=== PATIENT | female | born 1950 | race Caucasian/White ===

== ENCOUNTER → 2019-12-02 | Outpatient (CLI) | payer BC, OTHER ==
[~2019-12-02] MED LIST: ADULT LOW DOSE81 MG PO; ALTOPREV20 MG PO; ANTACID500 MG PO; CALCIUM OYSTER500 MG PO; FISH OIL 1,0001 EAC5 PO; LOPRESSOR PO; MULTIPLE VITAM1 EAC3 PO
== END ==
LOC: SJCVCIMAG 10:50
DX: I08.1 Rheumatic disorders of both mitral and tricuspid valves (principal); I10 Essential (primary) hypertension; E78.5 Hyperlipidemia, unspecified

== ENCOUNTER → 2020-01-28 | Outpatient (CLI) | payer OTHER | LOC: CAT 07:04 | PROVIDERS: ATTEND Internal Medicine Cardiovascular Disease | DX: Z13.6 Encounter for screening for cardiovascular disorders (principal); I25.10 Atherosclerotic heart disease of native coronary artery without angina pectoris; E78.00 Pure hypercholesterolemia, unspecified ==

== ENCOUNTER → 2021-06-26 | Outpatient (CLI) | payer BC, OTHER | LOC: SJCVCIMAG 09:41 | PROVIDERS: ATTEND Internal Medicine Cardiovascular Disease | DX: I34.0 Nonrheumatic mitral (valve) insufficiency (principal); I10 Essential (primary) hypertension; E78.5 Hyperlipidemia, unspecified ==